=== PATIENT | female | born 1935 | race Caucasian/White ===

== ENCOUNTER → 2023-07-25 14:53 | Outpatient (REF) | payer OTHER, SELFPAY | LOC: HWRAD 14:53 | PROVIDERS: ATTENDING PHYSICIAN Internal Medicine Rheumatology; FAMILY PHYSICIAN Internal Medicine | DX: M81.0 Age-related osteoporosis without current pathological fracture (principal) | CPT/HCPCS: 77080 ==

== ENCOUNTER → 2024-03-20 16:22 | Outpatient (REF) | payer OTHER, SELFPAY | LOC: RAD 16:22 | PROVIDERS: ATTENDING PHYSICIAN Internal Medicine | DX: R60.0 Localized edema (principal) | CPT/HCPCS: 93971 ==

== ENCOUNTER → 2024-03-22 11:38 | Outpatient (REF) | payer OTHER, SELFPAY | LOC: HWRAD 11:38 | PROVIDERS: ATTENDING PHYSICIAN Internal Medicine Rheumatology; FAMILY PHYSICIAN Internal Medicine | DX: M19.019 Primary osteoarthritis, unspecified shoulder (principal); M25.512 Pain in left shoulder; M54.50 Low back pain, unspecified | CPT/HCPCS: 72110; 73030 ==